=== PATIENT | female | born 1955 | race Caucasian/White ===

== ENCOUNTER 2016-11-09 17:28 | Emergency (ER) | payer OTHER ==
[2016-11-09] MEDS ORDERED: ORPHENADRINE CITRATE 60 MG/2ML IM ONE (17:49)
[2016-11-09] MEDS ORDERED: NALBUPHINE HCL 10 MG/1 ML IM ONE (17:49)
--- NOTE | 2016-11-09 17:54 | ED Physician Documentation ---
General Adult - HISTORIAN Historian: patient - HPI Stated Complaint: back pain Chief Complaint: General Adult Additional Information: More fany pain the last 4 days. No injury. Pain into right glut. Denies loss bowel/bladder control. No paralysis, weakness, numbness, tingling. To see surgeon Nov 20. - ROS CONST: no problems - PAST HX Past History: other (spinal stenosis, bulging disks) Allergies/Adverse Reactions: Allergies Allergy/AdvReac Type Severity Reaction Status Date / Time sumatriptan [From Imitrex] Allergy Severe breathing Verified 01/21/16 08:21 difficulty sumatriptan succinate Allergy Severe breathing Verified 01/21/16 08:21 [From Imitrex] difficulty fentanyl [From Duragesic] Allergy Intermediate Rash Verified 01/21/16 08:21 ketorolac tromethamine Allergy Unknown Verified 08/15/16 13:01 [From Toradol] Home Medications: Ambulatory Orders Medication Instructions Recorded Cyclobenzaprine HCl [Flexeril] 5 mg PO TID PRN #30 tablet 01/21/16 - SOCIAL HX Smoking History: cigarettes (quit in the last few months) - FAMILY HX Family History: No - VITAL SIGNS Vital Signs: Vital Signs Temp Pulse Resp BP Pulse Ox 98.2 F 98 H 18 176/102 95 11/09/16 17:35 11/09/16 17:35 11/09/16 17:35 11/09/16 17:35 11/09/16 17:35 - REVIEWED ASSESSMENTS Nursing Assessment Reviewed: Yes Vitals Reviewed: Yes ED Results Lab/Radiology - Orders Orders: ED Orders Category Date Time Status Nalbuphine HCl [Nubain] Med 11/09/16 17:49 Once 10 mg IM NOW ONE Orphenadrine Citrate [Norflex] Med 11/09/16 17:49 Once 60 mg IM NOW ONE General Adult Physical Exam - PHYSICAL EXAM GENERAL APPEARANCE: mild distress EENT: eye inspection normal, ENT inspection normal NECK: normal inspection, supple RESPIRATORY: no resp distress, breath sounds normal CVS: reg rate & rhythm, heart sounds normal RECTAL: deferred BACK: other (wearing back brace. No vertebral tenderness.) SKIN: warm/dry, normal color EXTREMITIES: no evidence of injury NEURO: CN's nml as tested, motor nml, sensation nml, cognition normal, other ( reflexes 2+ throughout) Discharge Clincal Impression: Chronic back pain Additional Instructions: Follow up with Dr. Slater as needed. Home Medications: Ambulatory Orders Cyclobenzaprine HCl [Flexeril] 5 mg PO TID PRN #30 tablet 01/21/16 Condition: Good Disposition: 01 HOME, SELF-CARE Decision to Admit: NO Decision Time: 18:00
[2016-11-09 18:42] VITALS: BP 181/106
== END 2016-11-09 18:28 | disposition home or self-care (01) ==
LOC: ED 17:28
DX: M54.5 Low back pain (principal)
CPT/HCPCS: 96372; 99283; J2300; J2360

== ENCOUNTER 2017-05-14 15:09 | Emergency (ER) | payer OTHER ==
[2017-05-14 15:28] VITALS: BP 153/83
[2017-05-14] MEDS: HALOPERIDOL LACTATE 5 MG/ML VIAL IM ONE (16:20)
--- NOTE | 2017-05-14 17:23 | ED Physician Documentation ---
Low Back Pain - HISTORIAN Historian: patient - HPI Stated Complaint: low back pain and migraine Chief Complaint: Low Back Pain/ Injury Additional Information: tripped over dog last wednesday, chronic low back pain, recently had back surgery History: history of chronic pain:, back pain Onset: days ago (10) Duration: continues in ED Recent Injury: Yes Context: fall Where: work Other Injuries: back Severity: moderate Quality: similar- prior back pain Front/Back of Body, Lg (Color): 1 - pain Associated Symptoms: numbness (right leg). denies: fever, chills, sweating, constipation, incontinence, nausea, vomiting, problems urinating, light- headedness, dizziness, weakness Worsened By:: other (standing) Relieved By: nothing Further Comments: no - ROS CONST: no problems CVS/RESP: none EYES/ENT: none MS/SKIN/LYMPH: other (numbness) Neuro/Psych: none GI/: denies: abdominal pain, black stools - PAST HX Past History: back pain Other History: CVA, other (migraines) Surgeries/Procedures: back surgery Immunizations: referred to PCP Allergies/Adverse Reactions: Allergies Allergy/AdvReac Type Severity Reaction Status Date / Time sumatriptan [From Imitrex] Allergy Severe breathing Verified 01/21/16 08:21 difficulty sumatriptan succinate Allergy Severe breathing Verified 01/21/16 08:21 [From Imitrex] difficulty fentanyl [From Duragesic] Allergy Intermediate Rash Verified 01/21/16 08:21 ketorolac tromethamine Allergy Unknown Verified 08/15/16 13:01 [From Toradol] Home Medications: Ambulatory Orders Medication Instructions Recorded Cyclobenzaprine HCl [Flexeril] 5 mg PO TID PRN #30 tablet 01/21/16 - SOCIAL HX Smoking History: cigarettes Alcohol Use: none Drug Use: none - FAMILY HX Family History: no significant history - VITAL SIGNS Vital Signs: Vital Signs Temp Pulse Resp BP Pulse Ox 98.2 F 93 H 18 153/83 93 05/14/17 15:15 05/14/17 15:15 05/14/17 15:15 05/14/17 15:15 05/14/17 15:15 - REVIEWED ASSESSMENTS Nursing Assessment Reviewed: Yes Vitals Reviewed: Yes Progress - Results/Orders Results/Orders: ct l-spine ordered, pt. left efore it could be done - Progress Progress: pt. given 60 mg toradol and 5 mg Haldol im in er Critical Care Note - Critical Care Note Total Time (mins): 0 ED Results Lab/Radiology - Lab Results Lab Results: none taken - Radiology Radiology Impressions: none taken, pt. left before they could be done - Orders Orders: ED Orders Category Date Time Status CT L-SPINE W/O CONTRAST Stat Exams 05/14/17 Ordered Haloperidol Lactate [Haldol] Med 05/14/17 15:57 Discontinued 5 mg IM NOW ONE Low Back Pain/Injury - Physical Exam General Appearance: alert, mild distress EENT: eye inspection normal, ENT inspection normal, pharynx normal, no signs of dehydration, SAMI, no nystagmus, TM's nml Neck: non-tender, painless ROM, trachea midline Resp/CVS: chest non-tender, breath sounds nml, heart sounds nml, no resp. distress, lungs clear, reg. rate & rhythm Abdomen: non-tender, no organomegaly, no pulsatile mass Back: muscle spasm (right lumbar paravertebral muscles). No: vertebral point- tendernes Straight Leg Raising: Negative Left, Positive Right Neuro/Psych: oriented x3, motor nml, sensation nml, bilat. doriflexion nml, reflexes nml, mood/affect nml Skin: warm/dry, normal color Extremities: non-tender, normal range of motion, no evidence of injury, no edema Discharge Clincal Impression: Acute lumbar myofascial strain Qualifiers: Encounter type: initial encounter Qualified Code(s): S39.012A - Strain of muscle, fascia and tendon of lower back, initial encounter Referrals: Oseas Slater MD [Primary Care Provider] - 2 Days Home Medications: Ambulatory Orders Cyclobenzaprine HCl [Flexeril] 5 mg PO TID PRN #30 tablet 01/21/16 Comments: pt. left after being seen by physician, treated but before ct scan done Condition: Stable Disposition: AGAINST MEDICAL ADVICE Decision to Admit: NO Decision Time: 17:00
== END 2017-05-14 17:00 | disposition left against medical advice (07) ==
LOC: ED 15:09
DX: S39.012A Strain of muscle, fascia and tendon of lower back, initial encounter (principal); X58.XXXA Exposure to other specified factors, initial encounter; Y93.9 Activity, unspecified; Y99.9 Unspecified external cause status; Z53.21 Procedure and treatment not carried out due to patient leaving prior to being seen by health care provider
CPT/HCPCS: 96372; 99283; J1630

== ENCOUNTER 2017-12-29 10:28 | Outpatient (CLI) | payer OTHER ==
[2017-12-29 11:34] LABS: eGFR (African) > 60; eGFR (Non-African) > 60
--- NOTE | 2017-12-29 18:18 | Diagnostic Imaging Report ---
[facility] [id number] [facility] [address] [address] Report Submission Date: Dec 29, 2017 11:09:03 AM CDT Patient Study Name: VIKKI TRAN Date: Dec 29, 2017 10:46:25 AM CDT Modality Type: DX Gender: F Description: CHEST : 57 Institution: [facility] Physician: PEDRO HERCULES Chest, 2 view History: COUGH X2 MONTHS, HX OF COPD, SMOKER X40 YEARS Findings: The heart size is normal. The lungs are clear. The lungs are hyperinflated. Calcified granuloma seen in the right lower lobe. There is no pleural effusion or pneumothorax identified. The osseous structures are normal. Impression: 1. No acute pulmonary disease. 2. Lung hyperinflation. Electronically signed on Dec 29, 2017 11:09:03 AM CDT by: Bernabe MAE
== END 2017-12-29 10:40 ==
LOC: RAD 10:28
PROVIDERS: ATTEND Family Medicine
DX: E78.5 Hyperlipidemia, unspecified (principal); J44.9 Chronic obstructive pulmonary disease, unspecified; R05 Cough
CPT/HCPCS: 36415; 71046; 80053; 80061

== ENCOUNTER 2019-07-30 14:05 | Emergency (ER) | payer OTHER ==
[2019-06-11 18:22] VITALS: BP 200/89
--- NOTE | 2019-08-22 10:26 | Diagnostic Imaging Report ---
BRIGIDO MOSELEY [facility] [id number] [facility] [address] [place], [place]. [address] Report Submission Date: Jul 30, 2019 2:57:01 PM CDT Patient Study Name: VIKKI TRAN Date: Jul 30, 2019 2:30:33 PM CDT Modality Type: CT\SR Gender: F Description: CT L-SPINE W/O : 57 Institution: [facility] Physician: BRIGIDO MOSELEY Examination: CT lumbar spine History: RIGHT LOWER BACK PAIN AFTER FALL FROM HORSE A WEEK AGO Comparison exams: CT Abdomen/pelvis dated 11 June 2019 Technique: CT lumbar spine axial imaging with sagittal and coronal reconstruction Findings: Sagittal reconstruction demonstrates disc space narrowing and endplate degenerative changes at L3/L4. Mild superior endplate narrowing L1 along the left lateral aspect. Central endplate narrowing L2. Anterior and lateral osteophytes. Coronal reconstruction does not demonstrate locked or perched facets. Vascular calcifications. Lung base emphysematous changes. Axial imaging obtained from T12 through the sacrum Lamina and pedicles are intact. No ossific density within the central canal. Multilevel facet degenerative changes. Moderate central canal and neuroforaminal narrowing L3/L4. No prevertebral soft tissue abnormality. Impression: Mid lumbar degenerative changes. L1 and L2 superior endplate narrowing - assessment for marrow edema can be obtained with MRI if clinically warranted. Electronically signed on Jul 30, 2019 2:57:01 PM CDT by: Xavier MAE
== END 2019-07-30 15:09 | disposition home or self-care (01) ==
LOC: ED 14:05
DX: M54.5 Low back pain (principal); V80.010A Animal-rider injured by fall from or being thrown from horse in noncollision accident, initial encounter
CPT/HCPCS: 72131; 99283; 99284

== ENCOUNTER 2019-09-23 13:56 | Emergency (ER) | payer OTHER ==
--- NOTE | 2019-09-23 14:10 | ED Physician Documentation ---
General Adult - HISTORIAN Historian: patient - HPI Stated Complaint: laceration Chief Complaint: Laceration/Recheck/Suture Additional Information: Patient presents to ED with laceration to left leg after falling down bleachers this morning. Patient is not current on tetanus. - ROS CONST: no problems EYES/ENT: none CVS/RESP: none GI/: none MS/SKIN/LYMPH: none NEURO/PSYCH: denies: headache - PAST HX Past History: COPD Other History: none, other (chronic back pain, chronic headaches) Allergies/Adverse Reactions: Allergies Allergy/AdvReac Type Severity Reaction Status Date / Time sumatriptan [From Imitrex] Allergy Severe breathing Verified 09/23/19 14:17 difficulty sumatriptan succinate Allergy Severe breathing Verified 09/23/19 14:17 [From Imitrex] difficulty fentanyl [From Duragesic] Allergy Intermediate Rash Verified 09/23/19 14:17 ketorolac tromethamine Allergy Unknown Verified 09/23/19 14:17 [From Toradol] Home Medications: Ambulatory Orders Medication Instructions Recorded Cyclobenzaprine HCl [Flexeril] 5 mg PO TID PRN #30 tablet 01/21/16 Butalb/Acetaminophen/Caffeine 1 tab PO QID 09/23/19 [Fioricet 50-325-40 mg Tablet] Fluticasone/Vilanterol [Breo 1 puff PO DAILY 09/23/19 Ellipta 100-25 Mcg INH] - SOCIAL HX Smoking History: cigarettes, greater than 1 pack/day Alcohol Use: none Drug Use: none - FAMILY HX Family History: No - VITAL SIGNS Vital Signs: Vital Signs Temp Pulse Resp BP Pulse Ox 98.9 F 88 18 152/61 95 09/23/19 14:08 09/23/19 14:08 09/23/19 14:08 09/23/19 14:08 09/23/19 14:08 - REVIEWED ASSESSMENTS Nursing Assessment Reviewed: Yes Vitals Reviewed: Yes Procedures Wound Location: lower extremity Wound Length: 6cm Wound's Depth, Shape: irregular, contused tissue Wound Explored: clean Betadine Prep?: Yes Anesthesia: 1% Lidocaine Volume of Anesthetic: 10 Wound Debrided: minimal Wound Repaired With: sutures Suture Size/Type: 4:0 Number of Sutures: 7 Layer Closure?: No Sterile Dressing Applied?: Yes Splint Applied?: No Sling Applied?: No ED Results Lab/Radiology - Orders Orders: ED Orders Category Date Time Status Diph,Pertuss(Acell),Tet Vac/Pf [Adacel] Med 09/23/19 14:10 Discontinued 0.5 ml IM .ONCE ONE Lidocaine 1% 5ml [Xylocaine] Med 09/23/19 14:10 Discontinued 50 mg IM NOW ONE Lidocaine 1% 5ml [Xylocaine] Med 09/23/19 14:11 Discontinued 50 mg IM NOW ONE General Adult Physical Exam - PHYSICAL EXAM GENERAL APPEARANCE: no distress EENT: SAMI NECK: supple RESPIRATORY: no resp distress, breath sounds normal CVS: reg rate & rhythm, heart sounds normal ABDOMEN: soft, normal bowel sounds, non-tender BACK: normal inspection SKIN: warm/dry, normal color EXTREMITIES: non-tender, no edema NEURO: oriented X3, mood/affect nml Discharge Clincal Impression: Laceration Referrals: Oseas Slater MD [Primary Care Provider] - 2 Days Additional Instructions: 1. Wash laceration twice daily with antibacterial soap then apply triple antibiotic ointment. Keep covered with bandage 2. Remove bandage at night 3. Take antibiotics until gone 4. Folllow up with PCP within 7-10 days for suture removal 5. Return to ER for new or worsening symptoms Comments: Tetanus vaccine given Condition: Stable Disposition: 01 HOME, SELF-CARE Decision to Admit: NO Date of Decison to Admit: 09/23/19 Decision Time: 14:57
[2019-09-23 14:17] VITALS: BP 152/61
[2019-09-23] MEDS: Lidocaine 1% 5ml 10 MG/ML VIAL IM ONE ×2 (15:00→15:01)
[2019-09-23] MEDS: DIPH,PERTUSS(ACELL),TET VAC/PF 0.5 ML DISP.SYRIN IM ONE (15:02)
== END 2019-09-23 15:02 | disposition home or self-care (01) ==
LOC: ED 13:56
DX: S81.812A Laceration without foreign body, left lower leg, initial encounter (principal); W10.8XXA Fall (on) (from) other stairs and steps, initial encounter
CPT/HCPCS: 12002; 90471; 90715; 99282; 99284